=== PATIENT | male | born 1975 | race Native Hawaiian/Other Pacific Islander ===

== ENCOUNTER 2023-12-11 10:56 | Day surgery (SDC) | payer OTHER ==
[2023-12-05 14:24] VITALS: BMI 27.1
[~2023-12-11 10:56] MED LIST: LIDOCAINE 1% (10MG/ML) FOR IV START INTRADERMA PRN; ONDANSETRON 4 MG/2 ML VIAL IVP PRN
[2023-12-11 11:37] VITALS: TEMP 97
[2023-12-11] MEDS: IV FLUID CONTINUATION 1,000 ML IV ONE (11:44)
[2023-12-11] MEDS: LACTATED RINGERS 1,000 ML IV SCH (11:44)
[2023-12-11] MEDS ORDERED: PROPOFOL 10 MG/ML 20 ML VIAL IV ONE (14:12)
[2023-12-11] MEDS ORDERED: GLYCOPYRROLATE 0.2 MG/ML 2 ML VIAL ONE (14:12)
[2023-12-11] MEDS ORDERED: LIDOCAINE 2% (PF) 20 MG/ML 5 ML VIAL ONE (14:12)
--- NOTE | 2023-12-11 14:18 | P.GSHP ---
History of Present Illness H&P Date: 12/11/23 Chief Complaint: Gerd, screening colonoscopy This is a 48-year-old male with gerd. Patient is today for EGD and screening colonoscopy. Past Medical History Additional Past Medical History / Comment(s): postive cologard History of Any Multi-Drug Resistant Organisms: None Reported Past Surgical History: Appendectomy Past Anesthesia/Blood Transfusion Reactions: No Reported Reaction Smoking Status: Current some day smoker - Past Family History Mother Family Medical History: No Reported History Medications and Allergies Home Medications Medication Instructions Recorded Confirmed Type No Known Home Medications 12/05/23 12/11/23 History Allergies Allergy/AdvReac Type Severity Reaction Status Date / Time No Known Allergies Allergy Verified 12/11/23 11:31 Surgical - Exam Vital Signs Temp Pulse Resp BP Pulse Ox 97.0 F L 110 H 18 140/93 96 12/11/23 11:31 12/11/23 11:31 12/11/23 11:31 12/11/23 11:31 12/11/23 11:31 - General well developed, no distress, moderate distress - Eyes PERRL - ENT normal pinna, normal nares - Neck no masses - Respiratory normal expansion - Cardiovascular Rhythm: regular - Abdomen Abdomen: soft, non tender Assessment and Plan Assessment: Gerd. Will perform EGD. Will also perform screening colonoscopy.
--- NOTE | 2023-12-11 14:33 | P.OP ---
Date of Procedure: 12/11/23 Preoperative Diagnosis: Gerd Screening colonoscopy Postoperative Diagnosis: Antral gastritis Sliding hiatal hernia Erosive esophagitis Normal colon Procedure(s) Performed: EGD Colonoscopy Anesthesia: MAC Surgeon: Hans Pollock Pathology: other (Antrum, esophagus) Condition: stable Disposition: PACU Description of Procedure: The patient was placed on the endoscopy table in the lateral position. He received IV sedation. The H oropharynx passed in the esophagus and the stomach. Scope was then placed through the pylorus. The first and second portion of the duodenum appeared normal. The scope was then brought back. Tremulous. Mildly plain. A biopsy was performed. The scope was then retroflexed and remainder of the stomach appeared normal. Patient had a moderate sliding hiatal hernia. The GE junction was at 38 cm. The distal esophagus was inflamed. There was evidence of erosive esophagitis. A biopsy performed. The proximal esophagus appeared normal. Scope withdrawn from the patient. Next digital rectal exam was performed this revealed no abnormalities. The prostate was symmetrical without nodules. The flexible colonoscope was then placed the patient anus and passed throughout the entire colon. The ileocecal valve was visualized. The cecum, ascending and transverse colon appeared normal. The descending and sigmoid colon appeared normal. Scope was never back to the rectum and this appeared normal. Scope withdrawn for the patient.
[2023-12-11 15:03] VITALS: BP 124/83; PULSE 88
[2023-12-11 15:18] VITALS: RESP 20
== END 2023-12-11 15:23 | disposition home or self-care (01) ==
LOC: ORWHC2ENDO 10:56
PROVIDERS: ATTEND Surgery
DX: K21.00 Gastro-esophageal reflux disease with esophagitis, without bleeding (principal); K29.50 Unspecified chronic gastritis without bleeding; K22.10 Ulcer of esophagus without bleeding; K44.9 Diaphragmatic hernia without obstruction or gangrene; F17.290 Nicotine dependence, other tobacco product, uncomplicated; F17.210 Nicotine dependence, cigarettes, uncomplicated
CPT/HCPCS: 88305; 45378; 43239; J2704; J2001; J1596

== ENCOUNTER 2024-07-15 09:47 | Observation (INO) | payer OTHER ==
[2024-07-15] MEDS: IV FLUID CONTINUATION 1,000 ML IV ONE ×2 (07:36)
[2024-07-15] MEDS: LACTATED RINGERS 1,000 ML IV SCH (07:39)
[2024-07-15] MEDS: ACETAMINOPHEN TAB 500 MG TAB PO PRN (07:49)
[2024-07-15] MEDS: HEPARIN SODIUM,PORCINE 5,000 UNIT/ML 1 ML VIAL SQ PRN (07:50)
[2024-07-15] MEDS: DEXAMETHASONE SOD PHOSPHATE 4 MG/ML 1 ML VIAL IV ONE (07:50)
[2024-07-15] MEDS: ONDANSETRON 4 MG/2 ML VIAL IVP ONE (07:50)
[2024-07-15] MEDS: FAMOTIDINE 20 MG/2 ML VIAL IV STA (07:51)
[2024-07-15 07:58] LABS: HCT 48.1 % (39.0-53.0); HGB 16.4 gm/dL (13.0-17.5); MCH 29.8 pg (25.0-35.0); MCHC 34.1 g/dL (31.0-37.0); MCV 87.5 fL (80.0-100.0); Mean Platelet Volume 6.9; Platelet Count 351 k/uL (150-450); RDW 12.9 % (11.5-15.5); WBC 10.1 k/uL (3.8-10.6)
[2024-07-15] MEDS: BUPIVACAINE (PF) 0.25% 30 ML VIAL SQ ONE (09:42)
[~2024-07-15 09:47] MED LIST changes: +GLYCOPYRROLATE 0.2 MG/ML 2 ML VIAL ONE; +HYDROmorphone (PF) 1 MG/ML ONE; +HYDROmorphone 0.5 MG/0.5 ML SYRINGE IVP PRN; -LIDOCAINE 1% (10MG/ML) FOR IV START INTRADERMA PRN; +LIDOCAINE 1% INJ 10MG/ML (20 ML MDV) ONE; +MIDAZOLAM 2 MG/2 ML VIAL IV PRN; +MIDAZOLAM 2 MG/2 ML VIAL ONE; +NEOSTIGMINE 1 MG/ML 10 ML VIAL ONE; -ONDANSETRON 4 MG/2 ML VIAL IVP PRN; +PROPOFOL 10 MG/ML 20 ML VIAL IV ONE; +ROCURONIUM 10 MG/ML (5 ML VIAL) IV ONE; +SUCCINYLCHOLINE CHLORIDE 200 MG/10 ML VIAL IV ONE; +fentaNYL (PF) 50 MCG/ML 2 ML AMP ONE
[2024-07-15] MEDS ORDERED: ONDANSETRON 4 MG/2 ML VIAL IVP PRN (10:23)
--- NOTE | 2024-07-15 11:52 | P.OP ---
Date of Procedure: 07/15/24 Preoperative Diagnosis: hiatal hernia Postoperative Diagnosis: Hiatal hernia Gerd Procedure(s) Performed: Laparoscopic hiatal hernia pair Anesthesia: KANDI Surgeon: Hans Pollock Estimated Blood Loss (ml): 5 Pathology: none sent Condition: stable Disposition: PACU Description of Procedure: H the patient was placed on the operating table in the supine position. The patient received general anesthesia. And was placed in dorsal lithotomy position. The patient was prepped and draped in the usual sterile fashion. The skin incision sites were anesthetized with 1% local Xylocaine. The skin was incised in the left periumbilical area and then using a blade less 5 mm trocar under direct visualization panel cavity was entered. After adequate insufflation the laparoscope was then placed into the peritoneal cavity. Next a 5 mm trochars placed in the right epigastric position. Another 5 millimeter trocar the right lateral position. Another 5 millimeter trocar in the left lateral position a 5 mm trocar is placed in the left epigastric position. And then the initial 5 mm trocar was exchanged for a 10 mm trocar. The left lateral lobe liver was retracted. The hernia was seen. The crural defect was then dissected using the Harmonic scissors device. A 360 crural dissection was performed the esophagus stomach was reduced back into the peritoneal Cavity. The crural defect was then closed using 2-0 Ethibond suture. Prior to crural closure there was a lipoma dissected free. This was removed from the GE junction hiatal hernia area. The trocars were withdrawn. Skin was then closed interrupted 3-0 Monocryl suture. Dermabond was applied.
[2024-07-15] MEDS: LACTATED RINGERS 1,000 ML IV ONE (12:08)
[2024-07-15] MEDS: SCOPOLAMINE 1 MG/72 HR PATCH TRANSDERM ONE (12:46)
[2024-07-15] MEDS: HYDROmorphone 1 MG/ML 1 ML SYRINGE IVP PRN (12:58)
[2024-07-15] MEDS: D5-0.45% NACL WITH KCL 20MEQ/L 1,000 ML IV SCH (13:00)
[2024-07-15 16:17] LABS: Glucose,Whole Blood 194 mg/dL (70-110)
--- NOTE | 2024-07-15 16:17 | XR ---
EXAMINATION TYPE: XR chest 1V portable DATE OF EXAM: 07/15/2024 4:13 PM COMPARISON: None TECHNIQUE: XR chest 1V portable Portable AP radiograph of the chest. CLINICAL INDICATION:Male, 49 years old with history of chf; FINDINGS: Lungs/Pleura: There is no evidence of pleural effusion, focal consolidation, or pneumothorax. Pulmonary vascularity: Unremarkable. Heart/mediastinum: Cardiomediastinal silhouette is enlarged. Musculoskeletal: No acute osseous pathology. IMPRESSION: 1. No acute cardiopulmonary disease/process. 2. Cardiomegaly. [facility], , 07/15/2024 4:14 PM
[2024-07-15] MEDS: PANTOPRAZOLE 40 MG/10 ML VIAL IVP SCH (16:37)
[2024-07-15] MEDS: SODIUM CHLORIDE 0.9% 1,000 ML IV ONE (16:43)
[2024-07-15 17:09] LABS: AST 82 U/L (17-59); African American GFR (CKD) >90 (>60 ml/min/1.73 sqM); Albumin 3.8 g/dL (3.5-5.0); Albumin/Globulin Ratio 1.6; Alkaline Phosphatase 77 U/L (38-126); Anion Gap 13 mmol/L; Blood Urea Nitrogen 14 mg/dL (9-20); Calcium 9.1 mg/dL (8.4-10.2); Carbon Dioxide 19 mmol/L (22-30); Chloride 100 mmol/L (98-107); Globulin 2.4 g/dL; Glucose 188 mg/dL (74-99); Non-African American GFR(CKD) 79 (>60 ml/min/1.73 sqM); Potassium 5.7 mmol/L (3.5-5.1); Sodium 132 mmol/L (137-145); Total Bilirubin 0.8 mg/dL (0.2-1.3); Total Protein 6.2 g/dL (6.3-8.2)
[2024-07-15 17:17] LABS: ALT 97 U/L (4-49)
[2024-07-15] MEDS: SODIUM CHLORIDE 0.9% 1,000 ML IV SCH (19:06)
[2024-07-15] MEDS: SODIUM ZIRCONIUM CYCLOSILICATE 10 GM PACKET PO ONE (19:19)
--- NOTE | 2024-07-16 02:17 | CONS ---
CONSULTATION REASON FOR CONSULTATION: Advice regarding tachycardia, other medical issues, requested by Surgery. HISTORY OF PRESENT ILLNESS: A 49-year-old gentleman with a past medical history of GERD, history of positive Cologuard, history of heart murmur, followed by Dr. Mady Benoit in the outpatient, admitted after laparoscopic hiatal hernia repair. The patient found heart rate in the 130, regular rate. The patient was admitted for further evaluation and treatment. There is no history of any fever, rigors, or chills, and the CBC is normal. PAST MEDICAL HISTORY: History of GERD, history of positive Cologuard, and heart murmur. ALLERGIES: None. FAMILY HISTORY: No history of heart disease or strokes in the family. SOCIAL HISTORY: History of vaping. REVIEW OF SYSTEMS: Fourteen-point review of systems negative except as mentioned earlier. PHYSICAL EXAMINATION: VITAL SIGNS: Pulse is 130, blood pressure 91/64, and respirations 13. HEENT: Conjunctivae normal. NECK: No JVD. CARDIOVASCULAR: S1, S2. RESPIRATION: Breath sounds diminished at the bases. No rhonchi. No crackles. ABDOMEN: Soft, status post surgery. LEGS: No edema. NERVOUS SYSTEM: Nonfocal. LABORATORY DATA: Reviewed. ASSESSMENT AND PLAN: 1. Status post laparoscopic hiatal hernia repair. 2. Tachycardia, possibly sinus, rule out supraventricular tachycardia. 3. History of gastroesophageal reflux disease. 4. History of positive Cologuard. RECOMMENDATIONS AND DISCUSSION: This is a 49-year-old gentleman, presented with multiple medical problems. I recommend a bolus of 0.9 at 500 cc. The EKG shows SVT. Troponins are positive. Cardiology consultation. Otherwise, we will continue to monitor. Symptomatic treatment provided. Pain management. Protonix IV. DVT prophylaxis. We will continue to follow. MMODL / IJN: [id number] / MTDD
[2024-07-16] MEDS: ENOXAPARIN 40 MG/0.4 ML SYRINGE SQ SCH (09:12)
[2024-07-16 09:13] LABS: HCT 31.5 % (39.6-50.0); HGB 10.4 g/dL (13.0-17.0); MCH 29.2 pg (27.0-32.0); MCV 88.5 FL (80.0-97.0); Mean Platelet Volume 10.2 FL (9.5-12.2); NRBC Per 100 WBC 0 X 10*3/uL (0.00-0.01); Platelet Count 341 X 10*3/uL (140-440); RBC 3.56 X 10*6/uL (4.40-5.60); WBC 20.77 X 10*3/uL (4.50-10.00)
[2024-07-16 09:26] LABS: ALT 94 U/L (10-49); AST 70 U/L (14-35); Albumin 3.8 g/dL (3.8-4.9); Alkaline Phosphatase 76 U/L (41-126); Blood Urea Nitrogen 13.8 mg/dL (9.0-27.0); Calcium 8.8 mg/dL (8.7-10.3); Carbon Dioxide 22.8 mmol/L (21.6-31.8); Chloride 99 mmol/L (96-109); Globulin 1.9 g/dL (1.6-3.3); Glucose 142 mg/dL (70-110); Sodium 135 mmol/L (135-145); Total Bilirubin 0.4 mg/dL (0.3-1.2); Total Protein 5.7 g/dL (6.2-8.2)
[2024-07-16 10:18] LABS: Basophils # (A) 0.07 X 10*3/uL (0.00-0.10); Basophils % (A) 0.3 %; Eosinophils # (A) 0 X 10*3/uL (0.04-0.35); Eosinophils % (A) 0 %; Lymphocytes # (A) 2.13 X 10*3/uL (0.90-5.00); Lymphocytes % (A) 10.3 %; Monocytes # (A) 2.01 X 10*3/uL (0.20-1.00); Monocytes % (A) 9.7 %; Neutrophils # (A) 16.18 X 10*3/uL (1.80-7.70); Neutrophils % (A) 77.9 %; RBC Morphology Normal (Normal)
[2024-07-16] MEDS: SODIUM CHLORIDE 0.9% 1,000 ML IV ONE ×2 (12:19→14:12)
[2024-07-16] MEDS: FOLIC ACID 1 MG TAB PO SCH (13:50)
[2024-07-16] MEDS: MULTIVITAMINS, THERA 1 EACH TAB PO SCH (13:50)
[2024-07-16] MEDS: THIAMINE 100 MG TAB PO SCH (13:50)
[2024-07-16] MEDS: SIMETHICONE 40 MG/0.6 ML DROPS 2,000 MG/30 ML BOTTLE PO SCH (13:50)
--- NOTE | 2024-07-16 14:03 | P.PN ---
Subjective Progress Note Date: 07/16/24 SURGICAL PROGRESS NOTE CHIEF COMPLAINT: Hiatal hernia HISTORY OF PRESENT ILLNESS: Patient is postop day #1 status post hiatal hernia repair. Patient reports initially yesterday he was having pain especially after drinking and laying back. He has been tachycardic. He reports today that his pain is better. He reports that he would like to be discharged home. He denies any chest pain. Patient is passing flatus. He reports able to urinate. afebrile. WBC did go up to 20.7 Hgb 10.4 platelets 341 potassium 5.7 down to 5.0 mildly elevated LFTs. Lactic acid elevated at 3.6 D-dimer 0.61 PHYSICAL EXAM: VITAL SIGNS: Reviewed. GENERAL: Well-developed in no acute distress. ABDOMEN: Soft. Mildly distended. Mild tenderness at incision sites. Incision sites clean dry and intact NEUROLOGIC: Alert and oriented. Cranial nerves II through XII grossly intact. ASSESSMENT: 1. Hiatal hernia and GERD status post laparoscopic hiatal hernia repair 2. Hypokalemia corrected PLAN: -1 L fluid bolus ordered by Dr. Pollock due to the tachycardia and elevated lactic acid level -Antibiotics added due to leukocytosis -Repeat labs in a.m. -Advance diet to full liquids -Medicine service has ordered a CTA of the chest -DVT prophylaxis Lovenox and GI prophylaxis Protonix Physician Surveillance Dual Rate Officer note has been reviewed by physician. Signing provider agrees with the documented findings, assessment, and plan of care. Objective - Vital Signs Vital signs: Vital Signs Temp 98.5 F 07/16/24 07:25 Pulse 131 H 07/16/24 11:35 Resp 17 07/16/24 07:25 BP 134/95 07/16/24 11:35 Pulse Ox 97 07/16/24 07:25 FiO2 Intake & Output 07/15/24 07/16/24 07/16/24 18:59 06:59 18:59 Intake Total 1370 Output Total 10 400 Balance 1360 -400 Weight 84.9 kg Intake: IV 1350 Oral 20 Output: Urine 400 Estimated Blood Loss 10 Other: Voiding Method Urinal # Voids 1 - Labs CBC & Chem 7: 07/16/24 04:17 07/16/24 04:17 Labs: Abnormal Lab Results - Last 24 Hours (Table) 07/15/24 07/15/24 07/16/24 Range/Units 16:15 16:29 04:17 WBC 20.77 H (4.50-10.00) X 10*3/uL RBC 3.56 L (4.40-5.60) X 10*6/uL Hgb 10.4 L (13.0-17.0) g/dL Hct 31.5 L (39.6-50.0) % Immature Gran # 0.38 H (0.00-0.04) X 10*3/uL Neutrophils # 16.18 H (1.80-7.70) X 10*3/uL Monocytes # 2.01 H (0.20-1.00) X 10*3/uL Eosinophils # 0 L (0.04-0.35) X 10*3/uL D-Dimer (<0.60) mg/L FEU Sodium 132 L (137-145) mmol/L Potassium 5.7 H (3.5-5.1) mmol/L Carbon Dioxide 19 L (22-30) mmol/L Anion Gap (4.00-12.00) mmol/L Glucose 188 H (74-99) mg/dL POC Glucose (mg/dL) 194 H (70-110) mg/dL Plasma Lactic Acid García (0.7-2.0) mmol/L AST 82 H (17-59) U/L ALT 97 H (4-49) U/L Total Protein 6.2 L (6.3-8.2) g/dL 07/16/24 07/16/24 07/16/24 Range/Units 04:17 12:06 12:52 WBC (4.50-10.00) X 10*3/uL RBC (4.40-5.60) X 10*6/uL Hgb (13.0-17.0) g/dL Hct (39.6-50.0) % Immature Gran # (0.00-0.04) X 10*3/uL Neutrophils # (1.80-7.70) X 10*3/uL Monocytes # (0.20-1.00) X 10*3/uL Eosinophils # (0.04-0.35) X 10*3/uL D-Dimer 0.61 H (<0.60) mg/L FEU Sodium (137-145) mmol/L Potassium (3.5-5.1) mmol/L Carbon Dioxide (22-30) mmol/L Anion Gap 13.20 H (4.00-12.00) mmol/L Glucose 142 H (74-99) mg/dL POC Glucose (mg/dL) (70-110) mg/dL Plasma Lactic Acid García 3.6 H* (0.7-2.0) mmol/L AST 70 H (17-59) U/L ALT 94 H (4-49) U/L Total Protein 5.7 L (6.3-8.2) g/dL
[2024-07-16 14:44] VITALS: RESP 16; TEMP 98.4
[2024-07-16 15:20] VITALS: BMI 28.4
[2024-07-16] MEDS: PIPERACILLIN-TAZOBACTAM 3.375 GM in SODIUM CHLORIDE 0.9% 100 ML IVPB SCH (15:36)
[2024-07-16 16:15] LABS: Basophils # (A) 0.1 k/uL (0-0.2); Basophils % (A) 0 %; Eosinophils # (A) 0.1 k/uL (0-0.7); Eosinophils % (A) 1 %; HCT 26.9 % (39.0-53.0); Lymphocytes # (A) 1.6 k/uL (1.0-4.8); Lymphocytes % (A) 12 %; MCH 30.3 pg (25.0-35.0); MCHC 34.7 g/dL (31.0-37.0); MCV 87.1 fL (80.0-100.0); Mean Platelet Volume 7.6; Monocytes % (A) 8 %; Neutrophils # (A) 10.6 k/uL (1.3-7.7); Neutrophils % (A) 78 %; Platelet Count 303 k/uL (150-450); RBC 3.09 m/uL (4.30-5.90); RDW 13.6 % (11.5-15.5); WBC 13.6 k/uL (3.8-10.6)
[2024-07-16 16:16] LABS: ALT 74 U/L (4-49); AST 67 U/L (17-59); African American GFR (CKD) >90 (>60 ml/min/1.73 sqM); Albumin 3.6 g/dL (3.5-5.0); Albumin/Globulin Ratio 1.6; Alkaline Phosphatase 69 U/L (38-126); Anion Gap 7 mmol/L; Blood Urea Nitrogen 11 mg/dL (9-20); Calcium 8.8 mg/dL (8.4-10.2); Carbon Dioxide 27 mmol/L (22-30); Chloride 102 mmol/L (98-107); Globulin 2.2 g/dL; Glucose 118 mg/dL (74-99); Non-African American GFR(CKD) >90 (>60 ml/min/1.73 sqM); Potassium 4.2 mmol/L (3.5-5.1); Sodium 136 mmol/L (137-145); Total Bilirubin 0.8 mg/dL (0.2-1.3); Total Protein 5.8 g/dL (6.3-8.2)
--- NOTE | 2024-07-16 16:19 | CT ---
EXAMINATION TYPE: CT angio chest DATE OF EXAM: 07/16/2024 COMPARISON: None CLINICAL INDICATION: Male, 49 years old with history of tachy, elev d dimer, PE?; PHH, elevated d-dim er TECHNIQUE: CTA scan of the thorax is performed with IV Contrast, patient injected with 100 mL of Isovue 370, pul monary embolism protocol. MIP images are created and reviewed. 3-D postprocessing was performed. CT DLP: [address] CTDI: mGy Automated exposure control for dose reduction was used. FINDINGS: There are tiny bilateral pleural effusions and mild interstitial changes in the lung bases, left grea ter than right. The great vessels and chest are normal and there is no mediastinal, hilar or axillary adenopathy. There are no filling defects within the pulmonary arterial circulation to suggest pulmonary embolism. There is no airspace consolidation. Limited scanning through the upper abdomen shows no gross abnormality. The osseous structures are intact. IMPRESSION: 1. No evidence of pulmonary embolism. 2. Tiny bilateral pleural effusions and mild bibasilar interstitial changes. [facility], , 07/16/2024 4:17 PM
[2024-07-16 16:23] LABS: HGB 9.3 gm/dL (13.0-17.5)
--- NOTE | 2024-07-17 01:56 | PN ---
PROGRESS NOTE DATE OF SERVICE: 07/16/2024 SUBJECTIVE: This is a 49-year-old gentleman, who was admitted after surgery, had some intermittent tachycardia and possibility of dehydration may be considered. The patient is improving after pain medication and IV fluids. OBJECTIVE: VITAL SIGNS: Pulse is 108, blood pressure 135/95, respirations 17. CHEST: Clear to auscultation. CARDIOVASCULAR: S1, S2. ABDOMEN: Soft. NERVOUS SYSTEM: Nonfocal. LABORATORY DATA: WBC 20.07. Rest of the labs are noted. ASSESSMENT: 1. Status post laparoscopic hiatal hernia repair. 2. Intermittent tachycardia, possibly sinus, rule out supraventricular tachycardia. 3. Hyponatremia. 4. Hyperkalemia. 5. Elevated LFTs. 6. Elevated WBC. 7. Mild anemia. 8. History of gastroesophageal reflux disease. 9. History of positive Cologuard. RECOMMENDATIONS: Recommend to continue current management and continue symptomatic treatment. I would recommend repeat EKG. If the tachycardia persists, cardiology consultation is sought. Otherwise, also recommend IV fluid boluses and pain control. Also, repeat labs. The patient has multiple abnormalities. We will repeat the labs and continue to monitor. Closely follow with Surgery. MMODL / IJN: [id number] /
[2024-07-17 08:42] LABS: BUN/Creat Ratio 8.12 Ratio (12.00-20.00); Blood Urea Nitrogen 6.5 mg/dL (9.0-27.0); Glucose 104 mg/dL (70-110)
[2024-07-17 08:43] LABS: ALT 71 U/L (10-49); AST 57 U/L (14-35); Albumin 3.3 g/dL (3.8-4.9); Albumin/Globulin Ratio 1.94 Ratio (1.60-3.17); Alkaline Phosphatase 64 U/L (41-126); Calcium 8.5 mg/dL (8.7-10.3); Carbon Dioxide 27.2 mmol/L (21.6-31.8); Chloride 106 mmol/L (96-109); Globulin 1.7 g/dL (1.6-3.3); Potassium 4.1 mmol/L (3.5-5.5); Sodium 139 mmol/L (135-145); Total Bilirubin 0.5 mg/dL (0.3-1.2)
[2024-07-17 09:59] LABS: Basophils # (A) 0.07 X 10*3/uL (0.00-0.10); Basophils % (A) 0.6 %; Eosinophils # (A) 0.16 X 10*3/uL (0.04-0.35); Eosinophils % (A) 1.3 %; HCT 22.3 % (39.6-50.0); HGB 7.3 g/dL (13.0-17.0); Lymphocytes # (A) 2.08 X 10*3/uL (0.90-5.00); Lymphocytes % (A) 17.2 %; MCH 29.4 pg (27.0-32.0); MCHC 32.7 g/dL (32.0-37.0); MCV 89.9 FL (80.0-97.0); Mean Platelet Volume 9.8 FL (9.5-12.2); Monocytes # (A) 1.49 X 10*3/uL (0.20-1.00); Monocytes % (A) 12.4 %; NRBC Per 100 WBC 0.04 X 10*3/uL (0.00-0.01); Neutrophils # (A) 8.04 X 10*3/uL (1.80-7.70); Neutrophils % (A) 66.7 %; Platelet Count 246 X 10*3/uL (140-440); RBC 2.48 X 10*6/uL (4.40-5.60); WBC 12.06 X 10*3/uL (4.50-10.00)
[2024-07-17] MEDS ORDERED: LORazepam 1 MG TAB PO PRN (10:51)
[2024-07-17] MEDS ORDERED: IPRATROPIUM-ALBUTEROL 3 ML NEB INHALATION PRN (10:51)
[2024-07-17] MEDS: SODIUM CHLORIDE 0.9% 1,000 ML IV ONE (11:00)
[2024-07-17 12:08] LABS: Influenza A Not Detected (Not Detectd); Influenza B Not Detected (Not Detectd); RSV Not Detected (Not Detectd)
[2024-07-17] MEDS: IPRATROPIUM-ALBUTEROL 3 ML NEB INHALATION SCH ×2 (12:12→16:13)
--- NOTE | 2024-07-17 12:15 | P.PN ---
Subjective Progress Note Date: 07/17/24 SURGICAL PROGRESS NOTE CHIEF COMPLAINT: Hiatal hernia HISTORY OF PRESENT ILLNESS: Patient is postop day #2 status post hiatal hernia repair. Patient denies any difficulty with drinking liquids. He is having bowel movements. He reports improvement in his abdominal bloating. Denies any nausea or vomiting. His pain is controlled. He did have a temp of 1 heart 0.7 last night. Patient has been tachycardic. Last BP 99/56 WBC is down from 28-13 and WBC of 12 this morning. Hgb down from 9.3-7.3. Hgb on admission 16.4 lactic acid level down from 3.6-2.3. CTA negative for PE PHYSICAL EXAM: VITAL SIGNS: Reviewed. GENERAL: Well-developed in no acute distress. ABDOMEN: Soft. Nondistended. Incision sites clean dry and intact NEUROLOGIC: Alert and oriented. Cranial nerves II through XII grossly intact. ASSESSMENT: 1. Hiatal hernia and GERD status post laparoscopic hiatal hernia repair 2. Hypokalemia corrected 3. Anemia 4. Leukocytosis improving PLAN: -Transfusing 1 unit of blood for hemoglobin of 7.3. Patient likely blood after surgery -Another 1 L bolus ordered patient also is likely dry -Continue antibiotics -Repeat labs in a.m. -Continue full liquid diet -DVT prophylaxis Lovenox and GI prophylaxis Protonix Physician Staple Side Laster note has been reviewed by physician. Signing provider agrees with the documented findings, assessment, and plan of care. Objective - Vital Signs Vital signs: Vital Signs Temp 98.4 F 07/17/24 07:40 Pulse 98 07/17/24 07:40 Resp 16 07/17/24 07:40 BP 99/56 07/17/24 07:40 Pulse Ox 96 07/17/24 07:40 FiO2 Intake & Output 07/16/24 07/17/24 07/17/24 18:59 06:59 18:59 Weight 84.9 kg Other: # Voids 2 3 1 - Labs CBC & Chem 7: 07/17/24 05:49 07/17/24 05:49 Labs: Abnormal Lab Results - Last 24 Hours (Table) 07/16/24 07/16/24 07/16/24 Range/Units 12:06 12:52 15:38 WBC (3.8-10.6) k/uL RBC (4.30-5.90) m/uL Hgb (13.0-17.5) gm/dL Hct (39.0-53.0) % Immature Gran # (0.00-0.04) X 10*3/uL Neutrophils # (1.3-7.7) k/uL Monocytes # (0.20-1.00) X 10*3/uL NRBC/100 WBC Diff (0.00-0.01) X 10*3/uL D-Dimer 0.61 H (<0.60) mg/L FEU Sodium (137-145) mmol/L BUN (9.0-27.0) mg/dL BUN/Creatinine Ratio (12.00-20.00) Ratio Glucose (74-99) mg/dL Plasma Lactic Acid García 3.6 H* 2.3 H* (0.7-2.0) mmol/L Calcium (8.7-10.3) mg/dL AST (17-59) U/L ALT (4-49) U/L Total Protein (6.3-8.2) g/dL Albumin (3.8-4.9) g/dL 07/16/24 07/16/24 07/17/24 Range/Units 15:38 15:38 05:49 WBC 13.6 H 12.06 H (3.8-10.6) k/uL RBC 3.09 L 2.48 L (4.30-5.90) m/uL Hgb 9.3 L D 7.3 L (13.0-17.5) gm/dL Hct 26.9 L 22.3 L (39.0-53.0) % Immature Gran # 0.22 H (0.00-0.04) X 10*3/uL Neutrophils # 10.6 H 8.04 H (1.3-7.7) k/uL Monocytes # 1.49 H (0.20-1.00) X 10*3/uL NRBC/100 WBC Diff 0.04 H (0.00-0.01) X 10*3/uL D-Dimer (<0.60) mg/L FEU Sodium 136 L (137-145) mmol/L BUN (9.0-27.0) mg/dL BUN/Creatinine Ratio (12.00-20.00) Ratio Glucose 118 H (74-99) mg/dL Plasma Lactic Acid García (0.7-2.0) mmol/L Calcium (8.7-10.3) mg/dL AST 67 H (17-59) U/L ALT 74 H (4-49) U/L Total Protein 5.8 L (6.3-8.2) g/dL Albumin (3.8-4.9) g/dL 07/17/24 Range/Units 05:49 WBC (3.8-10.6) k/uL RBC (4.30-5.90) m/uL Hgb (13.0-17.5) gm/dL Hct (39.0-53.0) % Immature Gran # (0.00-0.04) X 10*3/uL Neutrophils # (1.3-7.7) k/uL Monocytes # (0.20-1.00) X 10*3/uL NRBC/100 WBC Diff (0.00-0.01) X 10*3/uL D-Dimer (<0.60) mg/L FEU Sodium (137-145) mmol/L BUN 6.5 L (9.0-27.0) mg/dL BUN/Creatinine Ratio 8.12 L (12.00-20.00) Ratio Glucose (74-99) mg/dL Plasma Lactic Acid García (0.7-2.0) mmol/L Calcium 8.5 L (8.7-10.3) mg/dL AST 57 H (17-59) U/L ALT 71 H (4-49) U/L Total Protein 5.0 L (6.3-8.2) g/dL Albumin 3.3 L (3.8-4.9) g/dL
[2024-07-17] MEDS: HYDROcodone/APAP 5-325MG 1 EACH TAB PO PRN (16:25)
[2024-07-17] MEDS: FUROSEMIDE 10 MG/ML 2 ML VIAL IV ONE (17:30)
--- NOTE | 2024-07-17 23:35 | PN ---
PROGRESS NOTE DATE OF SERVICE: 07/17/2024 SUBJECTIVE: This is a 49-year-old gentleman, who was admitted after laparoscopic hiatal hernia, had intermittent tachycardia. The patient's white count is elevated. The patient possibly had pneumonia too. The patient had multiple acute abnormalities. The patient was started on empiric antibiotics and bronchodilators, and incentive spirometry. No chest pain. No palpitations. No fever. PAST MEDICAL HISTORY: Reviewed. REVIEW OF SYSTEMS: A 14-point review of systems is negative except as mentioned earlier. CURRENT MEDICATIONS: Reviewed. PHYSICAL EXAMINATION: VITAL SIGNS: Pulse 98, blood pressure 99/57, respirations 16, T-max 100.7. HEENT: Conjunctivae normal. NECK: No JVD. CARDIOVASCULAR: S1, S2. RESPIRATIONS: Breath sounds diminished at the bases. A few scattered rhonchi. ABDOMEN: Soft, status post surgery. LABORATORY DATA: Reviewed. Hemoglobin 7.3. ASSESSMENT: 1. Status post laparoscopic hiatal hernia repair. 2. Intermittent tachycardia, possibly sinus, rule out supraventricular tachycardia. 3. Possible pneumonia with fever and elevated WBC. 4. Anemia, multifactorial. 5. Hyponatremia. 6. Hyperkalemia. 7. Elevated LFT. 8. History of gastroesophageal reflux disease. RECOMMENDATIONS: I recommend to continue current management and continue symptomatic treatment. I recommend short course of IV antibiotics and as well as bronchodilators, incentive spirometry, 1 unit of transfusion with Lasix. Repeat labs in the morning. DVT prophylaxis. We will follow the patient closely. JIGAR / HANANEN: [id number] /
[2024-07-18 06:18] LABS: Basophils # (A) 0.1 k/uL (0-0.2); Basophils % (A) 0 %; Eosinophils # (A) 0.5 k/uL (0-0.7); Eosinophils % (A) 5 %; HGB 9.6 gm/dL (13.0-17.5); Lymphocytes # (A) 2.1 k/uL (1.0-4.8); Lymphocytes % (A) 18 %; MCH 29.9 pg (25.0-35.0); MCHC 34.3 g/dL (31.0-37.0); MCV 87.2 fL (80.0-100.0); Mean Platelet Volume 7.6; Monocytes # (A) 0.8 k/uL (0-1.0); Monocytes % (A) 7 %; Neutrophils # (A) 7.7 k/uL (1.3-7.7); Neutrophils % (A) 68 %; Platelet Count 300 k/uL (150-450); RDW 14.6 % (11.5-15.5); WBC 11.3 k/uL (3.8-10.6)
[2024-07-18 09:49] LABS: ALT 68 U/L (10-49); AST 43 U/L (14-35); Albumin 3.9 g/dL (3.8-4.9); Albumin/Globulin Ratio 1.86 Ratio (1.60-3.17); Alkaline Phosphatase 84 U/L (41-126); Blood Urea Nitrogen 4.4 mg/dL (9.0-27.0); Calcium 9.2 mg/dL (8.7-10.3); Carbon Dioxide 25.4 mmol/L (21.6-31.8); Chloride 104 mmol/L (96-109); Globulin 2.1 g/dL (1.6-3.3); Glucose 99 mg/dL (70-110); Potassium 3.7 mmol/L (3.5-5.5); Sodium 139 mmol/L (135-145); Total Bilirubin 0.8 mg/dL (0.3-1.2)
--- NOTE | 2024-07-18 10:42 | P.DS ---
Providers Expected date of discharge: 07/18/24 Attending physician: Hans Pollock Consults: 07/15/24 10:23 Consult Physician Routine Consulting Provider: Yumi Barnes Consult Reason/Comments: med manage Do you want consulting provider notified?: Yes Primary care physician: Mady Benoit Hospital Course: Discharge diagnosis 1. Hiatal hernia and GERD status post laparoscopic hiatal hernia repair 2. Hypokalemia corrected 3. Anemia. Likely due to acute blood loss anemia after surgery. Can be an expected finding. 4. Leukocytosis improving Hospital course This is a 49-year-old male with a known history of hiatal hernia and GERD. He is status post laparoscopic hiatal hernia repair. Patient did have a drop in his hemoglobin and was tachycardic after surgery. He likely bled after surgery. Patient did receive a unit of blood. Hemoglobin has improved from 7.3-9.6. Tachycardia has resolved. Patient is tolerating diet. He is having bowel movements. Pain is controlled. He is afebrile. He has been up and ambulating. He is stable for discharge. Please refer to chart for any further details. Physician Spider Assembler note has been reviewed by physician. Signing provider agrees with the documented findings, assessment, and plan of care. Patient Condition at Discharge: Stable Plan - Discharge Summary Discharge Rx Participant: Yes New Discharge Prescriptions: New HYDROcodone/APAP 5-325MG [Beaver 5-325] 1 tab PO Q6HR PRN 3 Days #12 tab PRN Reason: Pain Docusate [Colace] 100 mg PO BID #30 capsule Discharge Medication List Docusate [Colace] 100 mg PO BID #30 capsule 07/18/24 [Rx] HYDROcodone/APAP 5-325MG [Beaver 5-325] 1 tab PO Q6HR PRN 3 Days #12 tab 07/18/24 [Rx] Follow up Appointment(s)/Referral(s): Hans Pollock MD [STAFF PHYSICIAN] - 1 Week Activity/Diet/Wound Care/Special Instructions: No driving while taking Beaver No lifting over 10 pounds Shower daily. No soaking or tub baths for 2 weeks Very light activity until you are reevaluated at your follow up appointment with your surgeon Continue a full liquid diet for 2 weeks Discharge Disposition: HOME SELF-CARE
[2024-07-18 11:40] VITALS: BP 130/86; PULSE 83
== END 2024-07-18 12:34 | disposition home or self-care (01) ==
LOC: OR 09:47 → 6NMEDSUR 10:20 → OR 10:20 → 6NMEDSUR 10:20 → UNDOADMOB 10:21 → 6NMEDSUR 07-18 12:34 → OR 07-18 12:34
PROVIDERS: ADMIT Surgery; ATTEND Surgery
DX: K44.9 Diaphragmatic hernia without obstruction or gangrene (principal); R00.0 Tachycardia, unspecified; K21.9 Gastro-esophageal reflux disease without esophagitis; E87.6 Hypokalemia; D64.9 Anemia, unspecified; E87.5 Hyperkalemia; D72.829 Elevated white blood cell count, unspecified; R79.89 Other specified abnormal findings of blood chemistry; E87.1 Hypo-osmolality and hyponatremia; F17.290 Nicotine dependence, other tobacco product, uncomplicated
CPT/HCPCS: 43280; 96376 ×3; 96365; 96366 ×4; 96367; 96372 ×3; 96374; 96375 ×2; 85379; 80053 ×3; 83605 ×2; 84484; 85025 ×2; 85027; 71045; 71275; G0378 ×4; J2543 ×3; J2250; J0330; J1644; J1100; J1940; J2710; J0690; J2405; J2003; J1650 ×3; J3010; J3490; J1171 ×2; J2704; Q9967; J0665; J1596; J2470 ×4